=== PATIENT | female | born 1990 | race Caucasian/White ===

== ENCOUNTER 2017-03-30 07:33 | Emergency (ER) | payer MEDICAID ==
[~2017-03-30] VITALS: Ht 170.2 cm; Wt 68.0 kg
[~2017-03-30 07:33] MED LIST: PROM25TA5 PO; ZOLO100T PO
[2017-03-30 07:37] VITALS: BP 111/69; PULSE 87; RESP 17; TEMP 98.3; O2SAT 100
[2017-03-30] MEDS ORDERED: SODIUM CHLOR 0.9% 1000 ML INJ 1,000 ML IV SCH (08:00)
[2017-03-30] MEDS ORDERED: SODIUM CHLORIDE 0.9% FLUSH 10 ML FLUSH IV FLUSH PRN (08:00)
[2017-03-30] MEDS ORDERED: ONDANSETRON HCL 4 MG/2 ML VIAL IVP ONE (08:00)
--- NOTE | 2017-03-30 08:04 | PD ---
HPI Chief Complaint: Cold / Flu Symptoms Time Seen by Provider: 08:00 Travel History International Travel<30 days: No Contact w/Intl Traveler<30days: No Traveled to known affect area: No History of Present Illness HPI 27-year-old female presents to the ER today for several days history of nausea, vomiting, diarrhea, coughing, sore throat, malaise. She has also been having abdominal cramping pains. She states her mom has been sick and had some similar symptoms which turned into a pneumonia. Modifying Factors: None Associated Signs & Symptoms: Coughing, runny nose, sore throat, nausea, vomiting , diarrhea, abdominal cramping pains Risk Factors: Sick contact PFSH Past Medical History Anxiety: Yes Depression: Yes Diminished Hearing: No Gastrointestinal Disorders: Yes (endoscopy 4 days ago- dx gastritis) GERD: Yes Psychiatric: Yes (PTSD) Immunizations Current: Yes Migraines: Yes Ulcer: Yes (2010) Tetanus Vaccination: < 5 Years ?: Unknown LMP: FIRST WEEK OF FEBRUARY : 2 Para: 0 Miscarriage: 0 : 1 Past Surgical History Section: Yes (x1) Gynecologic Surgery: Yes (C Section ) Other Surgery: Yes () Social History Alcohol Use: No (seldom) Tobacco Use: No (1 pack of cigs in a month) Substance Use: No Allergies-Medications (Allergen,Severity, Reaction): Coded Allergies: No Known Allergies (Verified , 03/30/17) Reported Meds & Prescriptions Reported Meds & Active Scripts Active Review of Systems Except as stated in HPI: all other systems reviewed are Neg Physical Exam Narrative GENERAL: Well-developed young white female patient currently in mild distress. Awake and oriented 3. SKIN: Focused skin assessment warm/dry. HEAD: Atraumatic. Normocephalic. EYES: Pupils equal and round. No scleral icterus. No injection or drainage. ENT: Mucosa pink and moist. No erythema or exudates. No uvular edema. No uvular , palatal, or tonsillar deviation. Airway patent. NECK: Trachea midline. No JVD. CARDIOVASCULAR: Regular rate and rhythm. No murmur appreciated. RESPIRATORY: No accessory muscle use. Clear to auscultation. Breath sounds equal bilaterally. GASTROINTESTINAL: Abdomen soft, non-tender, nondistended. Hepatic and splenic margins not palpable. Benign. MUSCULOSKELETAL: No obvious deformities. No clubbing. No cyanosis. No edema. NEUROLOGICAL: Awake and alert. No obvious cranial nerve deficits. Motor grossly within normal limits. Normal speech. PSYCHIATRIC: Appropriate mood and affect; insight and judgment normal. Data Data Last Documented VS Vital Signs Date Time Temp Pulse Resp B/P Pulse Ox O2 Delivery O2 Flow Rate FiO2 03/30/17 09:35 Room Air 03/30/17 09:35 80 16 132/82 100 03/30/17 07:37 98.3 Orders Complete Blood Count With Diff (03/30/17 08:00) Comprehensive Metabolic Panel (03/30/17 08:00) Lipase (03/30/17 08:00) Urinalysis - C+S If Indicated (03/30/17 08:00) Iv Access Insert/Monitor (03/30/17 08:00) Ecg Monitoring (03/30/17 08:00) Oximetry (03/30/17 08:00) Ondansetron Inj (Zofran Inj) (03/30/17 08:00) Sodium Chlor 0.9% 1000 Ml Inj (Ns 1000 M (03/30/17 08:00) Sodium Chloride 0.9% Flush (Ns Flush) (03/30/17 08:00) Ed Urine Pregnancytest Poc (03/30/17 08:00) Influenzae A/B Antigen (03/30/17 08:00) Beta Hcg (Quant/Titer) (03/30/17 08:57) Us Pelvis (Ques Pr/Ect)W Trans (03/30/17 08:57) Labs Laboratory Tests Test 03/30/17 03/30/17 08:07 08:15 Urine Color YELLOW Urine Turbidity HAZY Urine pH 6.0 Urine Specific [place] 1.014 Urine Protein NEG mg/dL Urine Glucose (UA) NEG mg/dL Urine Ketones NEG mg/dL Urine Occult Blood NEG Urine Nitrite NEG Urine Bilirubin NEG Urine Leukocyte Esterase NEG Urine WBC 0-2 /hpf Urine Squamous Epithelial > 8 /hpf Cells Urine Bacteria OCC /hpf Urine Yeast (Budding) RARE Microscopic Urinalysis Comment CULT NOT INDICATED White Blood Count 9.1 TH/MM3 Red Blood Count 5.15 MIL/MM3 Hemoglobin 14.7 GM/DL Hematocrit 43.2 % Mean Corpuscular Volume 83.9 FL Mean Corpuscular Hemoglobin 28.5 PG Mean Corpuscular Hemoglobin 34.0 % Concent Red Cell Distribution Width 12.3 % Platelet Count 283 TH/MM3 Mean Platelet Volume 7.6 FL Neutrophils (%) (Auto) 65.1 % Lymphocytes (%) (Auto) 26.5 % Monocytes (%) (Auto) 5.7 % Eosinophils (%) (Auto) 1.9 % Basophils (%) (Auto) 0.8 % Neutrophils # (Auto) 5.9 TH/MM3 Lymphocytes # (Auto) 2.4 TH/MM3 Monocytes # (Auto) 0.5 TH/MM3 Eosinophils # (Auto) 0.2 TH/MM3 Basophils # (Auto) 0.1 TH/MM3 CBC Comment DIFF FINAL Differential Comment Sodium Level 140 MEQ/L Potassium Level 3.9 MEQ/L Chloride Level 108 MEQ/L Carbon Dioxide Level 26.1 MEQ/L Anion Gap 6 MEQ/L Blood Urea Nitrogen 8 MG/DL Creatinine 0.65 MG/DL Estimat Glomerular Filtration 110 ML/MIN Rate Random Glucose 84 MG/DL Calcium Level 8.6 MG/DL Total Bilirubin 1.0 MG/DL Aspartate Amino Transf 7 U/L (AST/SGOT) Alanine Aminotransferase 19 U/L (ALT/SGPT) Alkaline Phosphatase 45 U/L Total Protein 7.5 GM/DL Albumin 3.8 GM/DL Lipase 163 U/L Human Chorionic Gonadotropin, 02267 MIU/ML Quant MDM Medical Decision Making Medical Screen Exam Complete: Yes Emergency Medical Condition: Yes Medical Record Reviewed: Yes Interpretation(s) Laboratory Tests Test 03/30/17 03/30/17 08:07 08:15 Urine Turbidity HAZY (CLEAR) Urine Squamous Epithelial > 8 /hpf (0-5) Cells Urine Bacteria OCC /hpf (NONE) Urine Yeast (Budding) RARE (NONE) Chloride Level 108 MEQ/L (98-107) Aspartate Amino Transf 7 U/L (15-37) (AST/SGOT) Human Chorionic Gonadotropin, 58841 MIU/ML Quant (0-5) Differential Diagnosis Coughing, runny nose, nausea, vomiting, diarrheaURI versus viral syndrome versus influenza versus gastroenteritis versus dehydration versus metabolic issues Narrative Course Lab work shows that she is . It was otherwise unremarkable for significant metabolic issues. Her ultrasound shows IUP which is about 5 weeks. At this point, my plan would be to release the patient with symptomatically relief or nausea and vomiting and have her follow-up with [facility]. Return for any worsening in symptoms as needed. The plan has discussed with her and she states understanding. Diagnosis Primary Impression: Nausea and vomiting during Med/Other Pt SpecificInfo: Prescription(s) given Scripts Ondansetron Odt (Zofran Odt)4 Mg Tab4 Mg SL Q6HR PRN (Nausea/Vomiting) #7 TAB Ref 0 Prov:Cony Martin MD 03/30/17 Disposition: 01 DISCHARGE HOME Condition: Stable Cony Martin MD Mar 30, 2017 08:04
[2017-03-30 08:28] VITALS: O2SAT 100
[2017-03-30 08:28] LABS: AUTOMATED NEUTROPHIL # 5.9 TH/MM3 (1.8-7.7); BASOPHIL # 0.1 TH/MM3 (0-0.2); BASOPHIL % 0.8 % (0.0-2.0); EOSINOPHIL # 0.2 TH/MM3 (0-0.4); EOSINOPHIL % 1.9 % (0.0-4.0); HEMATOCRIT 43.2 % (35.0-46.0); HEMO FLAGS DIFF FINAL; LYMPH % 26.5 % (9.0-44.0); LYMPHOCYTE # 2.4 TH/MM3 (1.0-4.8); MEAN CELL VOLUME 83.9 FL (80.0-100.0); MEAN CORPUSCULAR HEMOGLOBIN 28.5 PG (27.0-34.0); MONO % 5.7 % (0.0-8.0); NEUT % 65.1 % (16.0-70.0); PLATELET COUNT 283 TH/MM3 (150-450); RED BLOOD COUNT 5.15 MIL/MM3 (4.00-5.30); RED CELL DISTRIBUTION WIDTH 12.3 % (11.6-17.2); WHITE BLOOD COUNT 9.1 TH/MM3 (4.0-11.0)
[2017-03-30 08:33] VITALS: BP 111/64; PULSE 70; RESP 16; O2SAT 100
[2017-03-30 08:36] LABS: CHLORIDE 108 MEQ/L (98-107); POTASSIUM 3.9 MEQ/L (3.5-5.1); SODIUM (NA) 140 MEQ/L (136-145)
[2017-03-30 08:39] LABS: BLOOD, URINE NEG (NEG); GLUCOSE,URINE NEG (NEG); KETONE, URINE NEG (NEG); NITRITE,URINE NEG (NEG)
[2017-03-30 08:40] LABS: ANION GAP 6 MEQ/L (5-15); BICARBONATE 26.1 MEQ/L (21.0-32.0)
[2017-03-30 08:41] LABS: BLOOD UREA NITROGEN 8 MG/DL (7-18)
[2017-03-30 08:43] LABS: ALT (GPT) 19 U/L (10-53); AST (GOT) 7 U/L (15-37); GLOMERULAR FILTRATION RATE 110 ML/MIN (>89)
[2017-03-30 08:46] LABS: ALKALINE PHOSPHATASE 45 U/L (45-117)
[2017-03-30 08:47] LABS: URINE COLOR YELLOW (YELLW/STRAW)
[2017-03-30 08:48] LABS: BACTERIA, URINE OCC /hpf; COMMENT (UR) CULT NOT INDICATED; CULTURE IF INDICATED CULT NOT INDICATED; SQUAMOUS EPITHELIAL CELL URINE > 8 /hpf (0-5); WBC, URINE 0-2 /hpf (0-5)
[2017-03-30 09:35] VITALS: BP 132/82; PULSE 80; RESP 16; O2SAT 100
[2017-03-30 10:31] LABS: BETA HCG QUANT 13824 MIU/ML (0-5)
[2017-03-30] MEDS ORDERED: ZOFR4TAB3 SL (10:43)
--- NOTE | 2017-03-30 10:46 | RADRPT ---
EXAM DATE/TIME: 03/30/2017 09:57 [facility] COMPARISON: No previous studies available for comparison. INDICATIONS : Pelvic cramping, nausea and vomiting. LAB(S): Beta-[facility] MEDICAL HISTORY : . Gastroesophageal reflux disease. PTSD. SURGICAL HISTORY : section. Endoscopy. ENCOUNTER: Initial ACUITY: 1 day PAIN SCORE: 4/10 LOCATION: Bilateral pelvis MEASUREMENTS: UTERUS: 8.8 x 7.2 x 5.0 cm ENDOMETRIAL STRIPE: 9 mm RIGHT OVARY: 2.1 x 1.9 x 1.6 cm LEFT OVARY: 3.1 x 2.2 x 2.4 cm FREE FLUID: No CROWN RUMP LENGTH: 0.42 cm = 6 WKS 1 DAYS FHR: 133 BPM FINDINGS: UTERUS: intrauterine noted. The gestational sac and along the right edge of the uterus possible cornual . The crown-rump length measures 4 mm corresponding with a six-week one-da y . Positive heart tones at either 33 beats per minute. RIGHT OVARY: Ovary contains no mass or significant cystic lesion. LEFT OVARY: Complex cyst measures 16 x 14 x 10 mm. MISCELLANEOUS: No free fluid. CONCLUSION: 1. Gestational sac is seen along the right edge of the uterus possible cornual . Close follo wup recommended. 2. Positive heart tones with gestation of 6 weeks and one day. 3. Complex cyst left ovary likely corpus luteal cyst. Mika Castro MD on March 30, 2017 at 10:40 Board Certified Radiologist. This report was verified electronically.
[2017-03-30 10:48] VITALS: BP 100/60
== END 2017-03-30 10:54 | disposition home or self-care (01) ==
LOC: PHED 07:33
DX: O21.9 Vomiting of pregnancy, unspecified (principal); Z3A.01 Less than 8 weeks gestation of pregnancy
CPT/HCPCS: 76700; 76817; 80053; 81001; 83690; 84702; 84703; 85025; 87804; 96361; 96374; 99285; J2405; J7030